=== PATIENT | male | born 1965 | race Caucasian/White ===

== ENCOUNTER 2016-09-20 10:10 | Emergency (ER) | payer OTHER ==
[~2016-09-20] VITALS: Ht 175.3 cm; Wt 99.0 kg
[2016-09-20 10:13] VITALS: Ht 175.3 cm; Wt 99.0 kg
--- NOTE | 2016-09-20 10:51 | ERD ---
ER Documentation Chief Complaint Date/Time DATE: 09/20/16 TIME: 10:44 Chief Complaint BACK PAIN RADITING TO CHEST X 1 MONTH HPI This is a 51 year old male, with past medical history for diabetes mellitus type 2 and hypertension, presenting to ER with intermittent chest pain that radiates to upper back. Patient states over the last 1 month he has had intermittent midsternal chest pain that radiates to the mid upper back. Patient states at times he has pain down his left arm. Patient states pain feels like pressure and dull aching pain. Patient states sometimes he has difficulty taking deep breaths. No shortness of breath. Denies heart palpitations. No cough or sore throat. No wheezing.No lower back pain, dysuria , hematuria, urinary frequency or urinary urgency. No nausea, vomiting or diarrhea. 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 No recent new heavy lifting. Patient states he has been off his hypertension medication for the past 1 month. ROS All systems reviewed and are negative except as per history of present illness. Medications Home Meds Active Scripts Naproxen* (Naprosyn*) 500 Mg Tablet, 500 MG PO BID Y for PAIN AND/OR INFLAMMATION, #15 TAB Prov:LIVAN MONROY Juliette FLEMING 09/20/16 PMhx/Soc Diabetes mellitus type 2 Hypertension History of Surgery: No Anesthesia Reaction: No Hx Neurological Disorder: No Hx Respiratory Disorders: No Hx Cardiac Disorders: No Hx Psychiatric Problems: No Hx Miscellaneous Medical Probl: No Hx Alcohol Use: No Hx Substance Use: No Hx Tobacco Use: No Physical Exam Vitals Vital Signs Date Time Temp Pulse Resp B/P Pulse Ox O2 Delivery O2 Flow Rate FiO2 09/20/16 14:14 62 18 137/90 98 Room Air 09/20/16 10:13 98.1 77 18 166/90 99 Physical Exam Const: Alert, no acute distress Head: Atraumatic Eyes: Normal Conjunctiva ENT: Normal External Ears, Nose and Mouth. Neck: Full range of motion..~ No meningismus. Resp: Clear to auscultation bilaterally. No wheezing, rhonchi or crackles. Cardio: Regular rate and rhythm, no murmurs. Chest wall tenderness with palpation Abd: Soft, non tender, non distended. Normal bowel sounds Skin: No petechiae or rashes Back: No midline or flank tenderness Ext: No cyanosis, or edema Neur: Awake and alert Psych: Normal Mood and Affect Result Diagram: 09/20/16 1100 09/20/16 1104 Results 24 hrs Laboratory Tests Test 09/20/16 11:00 09/20/16 11:04 White Blood Count 7.210^3/ul Red Blood Count 4.9210^6/ul Hemoglobin 14.2g/dl Hematocrit 41.3% Mean Corpuscular Volume 83.9fl Mean Corpuscular Hemoglobin 28.9pg Mean Corpuscular Hemoglobin Concent 34.4g/dl Red Cell Distribution Width 11.9% Platelet Count 66767^3/UL Mean Platelet Volume 10.3fl Neutrophils % 54.8% Lymphocytes % 33.2% Monocytes % 7.1% Eosinophils % 3.5% Basophils % 0.7% Nucleated Red Blood Cells % 0.0/100WBC Neutrophils # 3.910^3/ul Lymphocytes # 2.410^3/ul Monocytes # 0.510^3/ul Eosinophils # 0.310^3/ul Basophils # 0.110^3/ul Nucleated Red Blood Cells # 0.010^3/ul Prothrombin Time 13.4Sec Prothrombin Time Ratio 1.0 INR International Normalized Ratio 1.02 Activated Partial Thromboplast Time 24.2Sec Sodium Level 138mmol/L Potassium Level 3.9mmol/L Chloride Level 101mmol/L Carbon Dioxide Level 26mmol/L Anion Gap 15 Blood Urea Nitrogen 13mg/dl Creatinine 0.75mg/dl Glucose Level 132mg/dl Calcium Level 9.9mg/dl Troponin I < 0.012ng/ml Current Medications Medications (Trade) Dose Ordered Sig/Marcos Route PRN Reason Start Time Stop Time Status Last Admin Dose Admin Ketorolac Tromethamine (Toradol) 30 mg ONCE STAT IV 09/20/16 12:59 09/20/16 13:00 DC 09/20/16 13:13 Procedures/[place] [id number] Radiology Main Line: [phone] DIAGNOSTIC IMAGING REPORT Patient: DIAMOND MISHRA : 1965 Age: 51 Sex: M MR #: [id number] DOS: 09/20/16 1041 Ordering MD: LIVAN MONROY NP Location: [facility] Room/Bed: PROCEDURE: XR Chest AP portable CLINICAL INDICATION: Chest pain TECHNIQUE: An AP portable radiograph of the chest was submitted. COMPARISON: None. FINDINGS: Support Hardware: None Cardiovascular: The cardiovascular silhouette appears unremarkable. Lung Carrillo: The lung carrillo appear clear with no nodule, alveolar infiltrate, or interstitial prominence evident. Pleural Spaces: No pneumothorax or pleural effusion is identified. Osseous Structures: The osseous structures appear intact. Soft Tissues: The soft tissues appear generous. IMPRESSION: Unremarkable portable chest. EKG: As interpreted by myself and Dr. Love Rate/Rhythm: Normal sinus rhythm with heart rate 66 bpm QRS, ST, T-waves: No changes consistent w/ acute ischemia Impression: No evidence of ischemia or arrhythmia MDM: 51-year-old male presents the emergency department for intermittent midsternal chest pain that radiates to upper back. Upon arrival, patient states pain is not severe and rates pain as 6/10. Patient describes pain as pressure and dull aching. Patient states he has had this intermittently for the past 1 month and sometimes has difficulty taking deep breaths. Currently no shortness of breath or difficulty breathing. Oxygen saturation 99% on room air. EKG performed in the ER shows normal sinus rhythm with heart rate 66 bpm as interpreted by myself and Dr. Love. Chest x-ray reviewed by radiologist as unremarkable. Patient given Toradol 30mg IV. Upon reassessment, patient states he no longer has any chest pain. Remains stable and vitals remain stable. Differential diagnosis includes but not limited to pneumonia, bronchitis, pleurisy, costochondritis, gastroesophageal reflux,musculoskeletal chest pain and esophageal spasm. Low suspicion for acute coronary syndrome, pulmonary embolism, pneumothorax, aortic dissection and myocardial infarction. Patient is appropriate for outpatient management and will be discharged as stable. Patient will be given prescription for Naprosyn. Instructed patient to follow up with primary care provider in the next 24-48 hours. Return to ED for worsening pain, abdominal pain, vomiting, diarrhea, high fever or any new or worsening symptoms. Patient verbalizes understanding. All questions answered at discharge. Departure Diagnosis: Primary Impression: Chest wall pain Condition: Stable LIVAN MONROY NP Sep 20, 2016 10:51
[2016-09-20 11:23] LABS: ADD SCAN DIFF NO
--- NOTE | 2016-09-20 11:28 | RADRPT ---
PROCEDURE: XR Chest AP portable CLINICAL INDICATION: Chest pain TECHNIQUE: An AP portable radiograph of the chest was submitted. COMPARISON: None. FINDINGS: Support Hardware: None Cardiovascular: The cardiovascular silhouette appears unremarkable. Lung Christian: The lung christian appear clear with no nodule, alveolar infiltrate, or interstitial promi nence evident. Pleural Spaces: No pneumothorax or pleural effusion is identified. Osseous Structures: The osseous structures appear intact. Soft Tissues: The soft tissues appear generous. IMPRESSION: Unremarkable portable chest. Physician Tony Date Time Electronically viewed and signed by Elaine Baig Physician on 09/20/2016 11:28 /
[2016-09-20 11:34] LABS: BASOPHIL # 0.1 10^3/ul (0.0-0.1); BASOPHILS % 0.7 % (0.0-2.0); EOSINOPHILS # 0.3 10^3/ul (0.0-0.5); EOSINOPHILS % 3.5 % (0.0-7.0); HEMATOCRIT 41.3 % (42.0-52.0); HEMOGLOBIN 14.2 g/dl (14.0-18.0); LYMPHOCYTES # 2.4 10^3/ul (0.8-2.9); LYMPHOCYTES % 33.2 % (15.0-51.0); MEAN CORPUSCULAR HEMOGLOBIN 28.9 pg (29.0-33.0); MEAN CORPUSCULAR HGB CONC 34.4 g/dl (32.0-37.0); MEAN CORPUSCULAR VOLUME 83.9 fl (82.0-101.0); MEAN PLATELET VOLUME 10.3 fl (7.4-10.4); MONOCYTE # 0.5 10^3/ul (0.3-0.9); MONOCYTES % 7.1 % (0.0-11.0); NEUTROPHIL # 3.9 10^3/ul (1.6-7.5); NEUTROPHILS % 54.8 % (39.0-77.0); PLATELET COUNT 234 10^3/UL (140-415); RED BLOOD COUNT 4.92 10^6/ul (4.70-6.10); RED CELL DISTRIBUTION WIDTH 11.9 % (11.5-14.5); WHITE BLOOD COUNT 7.2 10^3/ul (4.8-10.8)
[2016-09-20 11:58] LABS: INR 1.02; PROTIME 13.4 Sec (12.2-14.2)
[2016-09-20 11:59] LABS: PARTIAL THROMBOPLASTIN TIME 24.2 Sec (25.0-35.0)
[2016-09-20 12:01] LABS: ANION GAP 15 (8-16); BLOOD UREA NITROGEN 13 mg/dl (7-20); CALCIUM 9.9 mg/dl (8.4-10.2); CARBON DIOXIDE 26 mmol/L (21-31); CHLORIDE 101 mmol/L (97-110); CREATININE 0.75 mg/dl (0.61-1.24); GLUCOSE 132 mg/dl (70-220); POTASSIUM 3.9 mmol/L (3.5-5.1); SODIUM 138 mmol/L (135-144)
[2016-09-20 12:13] LABS: TROPONIN-I < 0.012 ng/ml (0.00-0.12)
[2016-09-20] MEDS ORDERED: KETOROLAC 30 MG INJ IV STA (12:59)
[2016-09-20] MEDS ORDERED: NAPR-260 PO (13:53)
[2016-09-20 14:14] VITALS: BP 137/90; PULSE 62; RESP 18
== END 2016-09-20 14:15 | disposition home or self-care (01) ==
LOC: FTE 10:10
DX: R07.89 Other chest pain (principal); E11.9 Type 2 diabetes mellitus without complications; I10 Essential (primary) hypertension
CPT/HCPCS: 71010; 80048; 84484; 85025; 85610; 85730; 93005; J1885; 36415; 96374